=== PATIENT | male | born 1985 | race Caucasian/White ===

== ENCOUNTER 2021-06-19 14:28 | Emergency (ER) | payer OTHER ==
[2021-06-19 14:54] LABS: Absolute Lymphocytes (CBC) 2.6 K/uL (0.7-4.9); Basophils % 0.7 % (0-1.3); Hematocrit 51.1 % (39.6-49.0); Lymphocytes % 31.6 % (15.3-44.8); MPV 7.8 fL (7.6-11.3); RBC Red Blood Cell Count 5.11 M/uL (4.33-5.43)
[2021-06-19 14:57] LABS: Protime INR 1.03
--- NOTE | 2021-06-19 14:57 | RAD REPORT ---
EXAM DESCRIPTION: CT - Ct Stroke Brain Wo Cont - 06/19/2021 2:52 pm CLINICAL HISTORY: SLURRED SPEECH COMPARISON: No comparisons TECHNIQUE: All CT scans are performed using dose optimization technique as appropriate and may inclu de automated exposure control or mA/KV adjustment according to patient size. FINDINGS: No intracranial hemorrhage, hydrocephalus or extra-axial fluid collection.No areas of brai n edema or evidence of midline shift. The paranasal sinuses and mastoids are clear. The calvarium is intact. IMPRESSION: No acute intracranial abnormality.
[2021-06-19 15:09] LABS: BUN Blood Urea Nitrogen 7 mg/dL (7-18); Bicarbonate 25 mmol/L (21-32); Glucose Level 122 mg/dL (74-106); Potassium 3.2 mmol/L (3.5-5.1); Sodium Level 140 mmol/L (136-145)
[2021-06-19] MEDS ORDERED: LABETALOL HCL 100 MG/20 ML ONE (15:16)
[2021-06-19] MEDS ORDERED: ALTEPLASE 0 ML IV ONE (15:19)
[2021-06-19] MEDS ORDERED: NA CHLORIDE 0.9% 0 ML ONE (15:19)
[2021-06-19 15:35] LABS: Urine Blood Negative (Negative); Urine Glucose Negative (Negative); Urine Protein Negative (Negative); Urine Specific Gravity <=1.005 (1.005-1.030)
[2021-06-19 15:54] LABS: Barbiturates NEGATIVE (NEGATIVE); Benzodiazepines NEGATIVE (NEGATIVE); Cocaine NEGATIVE (NEGATIVE); METHAMPHETAM NEGATIVE (NEGATIVE); Methadone NEGATIVE (NEGATIVE); Opiates NEGATIVE (NEGATIVE); Phencyclidine NEGATIVE (NEGATIVE); THC Cannibis NEGATIVE (NEGATIVE)
--- NOTE | 2021-06-19 17:00 | ER ---
Nurse's Notes [facility] Name: Linda Jackson Age: 36 yrs Sex: Male : 1985 Arrival Date: 06/19/2021 Time: 14:29 Bed 8 Private MD: Diagnosis: Altered mental status, unspecified;Weakness;Adjustment disorder with anxiety;Post-traumatic stress disorder (PTSD) Presentation: 06/19 14:30 Chief complaint: Chief complaint: Patient states: "I was just sitting watching TV and aa5 my right side went weak and numb". Right arm weakness and drift noted. Onset of symptoms is 1400 06/19/21. Pt smells of ETOH, pt states "I was just having a beer but I don't drink everyday". 14:30 An acute neurological deficit is present. Pre-hospital glucose is not applicable to aa5 this patient. Onset of symptoms was June 19, 2021. 14:30 Acuity: CHETAN 2 aa5 14:30 Method Of Arrival: Wheelchair aa5 15:38 Coronavirus screen: Vaccine status: Patient reports being unvaccinated. Ebola Screen: tw5 Patient negative for fever greater than or equal to 101.5 degrees Fahrenheit, and additional compatible Ebola Virus Disease symptoms. Initial Sepsis Screen: Does the patient meet any 2 criteria? No. Patient's initial sepsis screen is negative. Does the patient have a suspected source of infection? No. Patient's initial sepsis screen is negative. Risk Assessment: Do you want to hurt yourself or someone else? Patient reports no desire to harm self or others. Triage Assessment: 15:37 The onset of the patients symptoms was June 19, 2021 at 14:30. General: Appears in tw5 no apparent distress. Behavior is calm, cooperative. Stroke Activation: Symptom onset < 3 hours Physician: Stroke Attending; Name: ; Notified At: ; Arrived At: Physician: Chief Stroke Resident; Name: ; Notified At: ; Arrived At: Physician: Stroke Resident; Name: ; Notified At: ; Arrived At: Physician: ED Attending; Name: ; Notified At: ; Arrived At: Physician: ED Resident; Name: ; Notified At: ; Arrived At: Historical: - PMHx: 14:30 Hypertensive disorder; PTSD; Anxiety; aa5 - Immunization history:: Client reports having NOT received the Covid vaccine. - Social history:: Smoking status: Patient reports the use of cigarette tobacco products, smokes one pack cigarettes per day. Patient uses alcohol. Screenin:34 Abuse screen: Denies threats or abuse. Denies injuries from another. Nutritional tw5 screening: No deficits noted. Tuberculosis screening: No symptoms or risk factors identified. Fall Risk None identified. Fall in past 12 months (25 points). Secondary diagnosis (15 points) IV access (20 points). Ambulatory Aid- None/Bed Rest/Nurse Assist (0 pts). Gait- Weak (10 pts.). Mental Status-. Assessment: 14:30 Reassessment: Pt taken to CT via wheelchair. . aa5 14:36 Reassessment: Pt back from CT, accompanied by me. Pt placed on ER stretcher. Dr. jennifer Grove at bedside. . 14:45 VAN Scoring: Arm Drift: Minor drift Visual Disturbance:. The patient has not been NPO tw5 before screening. The patient is alert, and able to follow commands. The patient does not exhibit slurred or garbled speech. The patient is exhibiting difficulty speaking. The patient does not exhibit difficulty understanding words. The patient is able to swallow own secretions with no drooling or need for suction. Patient tolerated one teaspoon of water. No drooling, immediate coughing, gurgling, or clearing of the throat was noted. The patient tolerated 90mL of water. No drooling, immediate coughing, gurgling, or clearing of the throat was noted. The patient passed the bedside swallow screening. Oral medications may be given as ordered. Contact Physician for further diet orders. Provider notified of bedside swallow screening results: Marquez Grove MD. T-PA (Activase) Screening: Indications: Definite evidence of stroke, ischemic, embolic, or hypertensive: Yes. Treatment will start within 4.5 hours onset of symptoms: Yes. No evidence of intracranial hemorrhage or CT of head and no evidence of peripheral hemorrhage or recent CVA: Yes. Consent for thrombolytic therapy: Yes. Pain: Complains of pain in left side of forehead Pain currently is 3 out of 10 on a pain scale. 15:08 Neuro: Level of Consciousness is awake, alert, Oriented to person, place, time, tw5 situation, Appropriate for age Reports numbness weakness 'Light headed'. 15:27 Reassessment: Patient states feeling better. Patient states symptoms have improved. tw5 16:26 Reassessment: No changes from previously documented assessment. Patient and/or family bp updated on plan of care and expected duration. Pain level reassessed. PT ASYMPTOMATIC AT THIS TIME. 17:24 Reassessment: Patient appears in no apparent distress at this time. Patient and/or jd3 family updated on plan of care and expected duration. Pain level reassessed. Patient is alert, oriented x 3, equal unlabored respirations, skin warm/dry/pink. moved pt from ER stretcher to hospital bed. pt denies pain at this time. Vital Signs: 14:50 BP 183 / 121; Pulse 99; Resp 12; Temp 97.7; Pulse Ox 96% on R/A; Weight 117.89 kg; tw5 Height 5 ft. 11 in. (180.34 cm); Pain 3/10; 15:10 BP 140 / 97; Pulse 90; Resp 19; Pulse Ox 98% on R/A; Pain 3/10; tw5 15:27 BP 140 / 97; Pulse 91; Resp 30; Pulse Ox 96% on R/A; Pain 0/10; tw5 15:36 BP 140 / 97; Pulse 92; Resp 18; Pulse Ox 98% on R/A; tw5 16:28 BP 140 / 96; Pulse 95; Resp 22; Pulse Ox 96% ; bp 17:28 BP 122 / 86; Pulse 131; Resp 21 S; Pulse Ox 100% on 2 lpm NC; jd3 14:50 Body Mass Index 36.25 (117.89 kg, 180.34 cm) tw5 NIH Stroke Scale Scores: 14:45 NIHSS Score: 6 tw5 15:27 NIHSS Score: 0 tw5 15:27 NIHSS Score: 7 kdr ED Course: 14:29 Patient arrived in ED. mr 14:30 Arm band placed on. aa5 14:46 Laura Henry is Primary Nurse. tw5 14:48 Marquez Grove MD is Attending Physician. kdr 14:52 CT Stroke Brain w/o Contrast In Process Unspecified. EDMS 14:53 Triage completed. aa5 14:56 Initial lab(s) drawn, by ED staff, sent to lab. Inserted saline lock: 20 gauge in right tw5 antecubital area, using aseptic technique. 14:56 EKG done, by ED staff, reviewed by Marquez Grove MD. tw5 14:56 Inserted saline lock: 20 gauge in left antecubital area, using aseptic technique. tw5 15:34 No apparent distress. Resting quietly. Awaiting lab results. tw5 15:34 Patient has correct armband on for positive identification. Placed in gown. Bed in low tw5 position. Call light in reach. Side rails up X 1. ecology professor on. Pulse ox on. NIBP on. Door closed. Noise minimized. Lights dimmed. Verbal reassurance given. 15:34 No provider procedures requiring assistance completed. Patient maintains SpO2 tw5 saturation greater than 95% on room air. 17:31 IV discontinued, intact, bleeding controlled, No redness/swelling at site. Pressure jd3 dressing applied. Administered Medications: 14:55 Drug: Labetalol 10 mg Route: IVP; Site: right antecubital; tw5 15:36 Follow up: BP 140 / 97; Pulse 92 bpm; Resp 18 bpm; Pulse Ox 98% RA tw5 15:36 Not Given (Physician Discretion; Rapid improvement of symptomss): ACTIvase (alteplase) tw5 IV Thrombolytics at calculated rate Per protocol over 60 mins; 0.9 mg/kg IV (Max: 90 mg); give 10% of the total dose as an IV bolus over 1 minute, then give the remaining 90% as an IV infusion over 60 minutes Point of Care Testing: Blood Glucose: 14:45 Blood Glucose: 144 mg/dL; aa5 Ranges: Outcome: 17:00 Discharge ordered by . kdr 17:30 Discharged to home ambulatory, with family. jd3 17:30 Condition: stable 17:30 Discharge instructions given to patient, Instructed on discharge instructions, follow up and referral plans. Demonstrated understanding of instructions, follow-up care. 17:32 Patient left the ED. jd3 NIH Stroke Scale - NIH Stroke Score Date: 06/19/2021 Time: 14:45 Total Score = 6 1a. Level of Consciousness (LOC) - 0(Alert) 1b. Level of Consciousness (LOC) (Month \\T\\ Age) - 0(Both) 1c. LOC Commands (Open \\T\\ Closes Eyes/Compensation Manager) - 0(Both) 2. Best Gaze (Lateral Gaze Paresis) - 0(Normal) 3. Visual Field Loss - 0(No visual loss) 4. Facial Palsy - 0(Normal) 5a. Left Arm: Motor (10-second hold) - 0(No drift) 5b. Right Arm: Motor (10-second hold) - 1(Drift) 6a. Left Leg: Motor (5-second hold - always test supine) - 0(No drift) 6b. Right Leg: Motor (5-second hold - always test supine) - 0(No drift) 7. Limb Ataxia (finger/nose \\T\\ heel/jean - test with eyes open) - 2(Present in two limbs) 8. Sensory Loss (pinprick arms/legs/face) - 1(Mild to moderate loss) 9. Best Language: Aphasia (description/naming/reading) - 1(Mild to moderate aphasia) 10. Dysarthria (speech clarity - read or repeat words) - 1(Mild to Moderate) 11. Extinction and Inattention (visual/tactile/auditory/spatial/personal) - 0(No abnormality) Initials: tw5 NIH Stroke Scale - NIH Stroke Score Date: 06/19/2021 Time: 15: Total Score = 0 1a. Level of Consciousness (LOC) - 0(Alert) 1b. Level of Consciousness (LOC) (Month \\T\\ Age) - 0(Both) 1c. LOC Commands (Open \\T\\ Closes Eyes/Compensation Manager) - 0(Both) 2. Best Gaze (Lateral Gaze Paresis) - 0(Normal) 3. Visual Field Loss - 0(No visual loss) 4. Facial Palsy - 0(Normal) 5a. Left Arm: Motor (10-second hold) - 0(No drift) 5b. Right Arm: Motor (10-second hold) - 0(No drift) 6a. Left Leg: Motor (5-second hold - always test supine) - 0(No drift) 6b. Right Leg: Motor (5-second hold - always test supine) - 0(No drift) 7. Limb Ataxia (finger/nose \\T\\ heel/jean - test with eyes open) - 0(Absent) 8. Sensory Loss (pinprick arms/legs/face) - 0(Normal) 9. Best Language: Aphasia (description/naming/reading) - 0(No aphasia) 10. Dysarthria (speech clarity - read or repeat words) - 0(Normal) 11. Extinction and Inattention (visual/tactile/auditory/spatial/personal) - 0(No abnormality) Initials: tw5 NIH Stroke Scale - NIH Stroke Score Date: 06/19/2021 Time: 15:27 Total Score = 7 1a. Level of Consciousness (LOC) - 0(Alert) 1b. Level of Consciousness (LOC) (Month \\T\\ Age) - 1(One) 1c. LOC Commands (Open \\T\\ Closes Eyes/Compensation Manager) - 1(One) 2. Best Gaze (Lateral Gaze Paresis) - 0(Normal) 3. Visual Field Loss - 0(No visual loss) 4. Facial Palsy - 0(Normal) 5a. Left Arm: Motor (10-second hold) - 0(No drift) 5b. Right Arm: Motor (10-second hold) - 1(Drift) 6a. Left Leg: Motor (5-second hold - always test supine) - 0(No drift) 6b. Right Leg: Motor (5-second hold - always test supine) - 1(Drift) 7. Limb Ataxia (finger/nose \\T\\ heel/jean - test with eyes open) - 1(Present in one limb) 8. Sensory Loss (pinprick arms/legs/face) - 1(Mild to moderate loss) 9. Best Language: Aphasia (description/naming/reading) - 0(No aphasia) 10. Dysarthria (speech clarity - read or repeat words) - 1(Mild to Moderate) 11. Extinction and Inattention (visual/tactile/auditory/spatial/personal) - 0(No abnormality) Initials: kdr Signatures: Dispatcher [employer] EDMS Marquez Grove MD MD [facility] Haylee AnuelXiomara RN RN aa5 Aristeo Weinstein RN RN jd3 Peltier, Brian, RN RN bp Wood, Tiffany tw5 Corrections: (The following items were deleted from the chart) 14:53 14:30 Chief complaint: aa5 aa5 14:54 14:30 Chief complaint: Patient states: "I was just sitting watching TV and my aa5 right side went weak and numb". Right arm weakness and drift noted. Onset of symptoms is 1400 06/19/21. Chief complaint: Patient states: "I was just sitting watching TV and my right side went weak and numb". Right arm weakness and drift noted. Onset of symptoms is 1400 06/19/21. aa5 14:59 14:50 BP 183 / 121; Pulse 99bpm; Resp 12bpm; Pulse Ox 96% RA; Temp 97.7F; tw5 Height 5 ft. 11 in.; Pain 0/10; tw5 15:08 14:50 BP 183 / 121; Pulse 99bpm; Resp 12bpm; Pulse Ox 96% RA; Temp 97.7F; tw5 Height 5 ft. 11 in.; Pain 3/10; tw5
--- NOTE | 2021-06-19 17:00 | EDPHYS ---
Physician Documentation [facility] Name: Linda Jackson Age: 36 yrs Sex: Male : 1985 Arrival Date: 06/19/2021 Time: 14:29 Bed 8 Private MD: ED Physician Marquez Grove HPI: 06/19 15:27 This 36 yrs old Male presents to ER via Wheelchair with complaints of S/S of kdr Possible Stroke. 15:27 The patient's problem is reported as paresthesias, in right lower extremity, weakness, kdr in the right upper extremity, in the right lower extremity. Duration: This was a single incident. Context: symptoms became apparent About 30 minutes prior to arrival. The symptoms are alleviated by nothing. The symptoms are aggravated by nothing. Associated signs and symptoms: The patient has no apparent associated signs or symptoms. Severity of symptoms: At their worst the symptoms were mild moderate just prior to arrival, in the emergency department the symptoms are unchanged. The patient has not experienced similar symptoms in the past. The patient has not recently seen a physician. The patient states that he has been under a lot of stress from his work and new job. 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 He indicated that he has been under a lot of stress secondary to the loss of some of his colleagues.. Historical: - PMHx: 14:30 Hypertensive disorder; PTSD; Anxiety; aa5 - Immunization history:: Client reports having NOT received the Covid vaccine. - Social history:: Smoking status: Patient reports the use of cigarette tobacco products, smokes one pack cigarettes per day. Patient uses alcohol. ROS: 15:27 Constitutional: Negative for fever, chills, and weight loss, Eyes: Negative for injury, kdr pain, redness, and discharge, ENT: Negative for injury, pain, and discharge, Neck: Negative for injury, pain, and swelling, Cardiovascular: Negative for chest pain, palpitations, and edema, Respiratory: Negative for shortness of breath, cough, wheezing, and pleuritic chest pain, Abdomen/GI: Negative for abdominal pain, nausea, vomiting, diarrhea, and constipation, Back: Negative for injury and pain, : Negative for injury, bleeding, discharge, and swelling, MS/Extremity: Negative for injury and deformity, Skin: Negative for injury, rash, and discoloration, Psych: Negative for depression, anxiety, suicide ideation, homicidal ideation, and hallucinations, Allergy/Immunology: Negative for hives, rash, and allergies, Endocrine: Negative for neck swelling, polydipsia, polyuria, polyphagia, and marked weight changes, Hematologic/Lymphatic: Negative for swollen nodes, abnormal bleeding, and unusual bruising. 15:27 Neuro: Positive for dizziness, weakness, Paresthesias of the right lower extremity. Exam: 15:27 Constitutional: This is a well developed, well nourished patient who is awake, alert, kdr and in no acute distress. Head/Face: Normocephalic, atraumatic. Eyes: Pupils equal round and reactive to light, extra-ocular motions intact. Lids and lashes normal. Conjunctiva and sclera are non-icteric and not injected. Cornea within normal limits. Periorbital areas with no swelling, redness, or edema. Neck: Trachea midline, no thyromegaly or masses palpated, and no cervical lymphadenopathy. Supple, full range of motion without nuchal rigidity, or vertebral point tenderness. No Meningismus. Chest/axilla: Normal chest wall appearance and motion. Nontender with no deformity. No lesions are appreciated. Cardiovascular: Regular rate and rhythm with a normal S1 and S2. No gallops, murmurs, or rubs. Normal PMI, no JVD. No pulse deficits. Respiratory: Lungs have equal breath sounds bilaterally, clear to auscultation and percussion. No rales, rhonchi or wheezes noted. No increased work of breathing, no retractions or nasal flaring. Abdomen/GI: Soft, non-tender, with normal bowel sounds. No distension or tympany. No guarding or rebound. No evidence of tenderness throughout. Back: No spinal tenderness. No costovertebral tenderness. Full range of motion. Skin: Warm, dry with normal turgor. Normal color with no rashes, no lesions, and no evidence of cellulitis. MS/ Extremity: Pulses equal, no cyanosis. Neurovascular intact. Full, normal range of motion. Psych: Awake, alert, with orientation to person, place and time. Behavior, mood, and affect are within normal limits. 15:27 Neuro: Orientation: appropriate for stated age, Cerebellar function: Slow. 17:03 Radiologist reports: Received a call from radiology however it was noted that the kdr report and available in in the EMR Vital Signs: 14:50 BP 183 / 121; Pulse 99; Resp 12; Temp 97.7; Pulse Ox 96% on R/A; Weight 117.89 kg; tw5 Height 5 ft. 11 in. (180.34 cm); Pain 3/10; 15:10 BP 140 / 97; Pulse 90; Resp 19; Pulse Ox 98% on R/A; Pain 3/10; tw5 15:27 BP 140 / 97; Pulse 91; Resp 30; Pulse Ox 96% on R/A; Pain 0/10; tw5 15:36 BP 140 / 97; Pulse 92; Resp 18; Pulse Ox 98% on R/A; tw5 16:28 BP 140 / 96; Pulse 95; Resp 22; Pulse Ox 96% ; bp 17:28 BP 122 / 86; Pulse 131; Resp 21 S; Pulse Ox 100% on 2 lpm NC; jd3 14:50 Body Mass Index 36.25 (117.89 kg, 180.34 cm) tw5 NIH Stroke Scale Scores: 14:45 NIHSS Score: 6 tw5 15:27 NIHSS Score: 0 tw5 15:27 NIHSS Score: 7 kdr MDM: 15:25 ED course: PA not given because the patient's symptoms were migratory and transient. kdr Additionally his sensorium seem to be improving and clearing and to the extent he had any defining focal deficits, they were improving.. ED course: The patient admitted to consuming most of a 24 ounce for local beverage prior to arrival. He had not had anything to eat prior to drinking the alcoholic beverage.. ED course: Due to the above considerations, the patient was not given TPA. 17:00 Patient medically screened. kdr 17:01 Data reviewed: vital signs, nurses notes. ED course: Normal the patient was in the kdr department, the more oriented he became more belligerent. He began using foul language with the nursing staff and insisted on being discharged. He had no apparent neurologic deficits. He was otherwise happy with the care provided and insisted on the plan for discharge to follow up. 06/19 14:48 Order name: Basic Metabolic Panel; Complete Time: 15:25 tw5 06/19 14:48 Order name: CBC with Diff; Complete Time: 15:05 tw5 06/19 14:48 Order name: Protime (+inr); Complete Time: 15:05 06/19 14:48 Order name: Ptt, Activated; Complete Time: 15:05 tw06/19 14:48 Order name: UDS 06/19 14:52 Order name: Glucose, Ancillary Testing; Complete Time: 15:05 EDMS 06/19 14:48 Order name: CT Stroke Brain w/o Contrast; Complete Time: 15:05 06/19 14:48 Order name: EKG; Complete Time: 14:49 tw06/19 14:48 Order name: Accucheck; Complete Time: 14:49 06/19 14:48 Order name: Cardiac monitoring; Complete Time: 14:49 06/19 15:35 Order name: Urine Dipstick-Ancillary EDMS 06/19 16:54 Order name: Alcohol Level [facility] 06/19 14:48 Order name: EKG - Nurse/Tech; Complete Time: 15:10 06/19 14:48 Order name: IV Saline Lock; Complete Time: 14:49 06/19 14:48 Order name: Labs collected and sent; Complete Time: 14:49 06/19 14:48 Order name: NPO; Complete Time: 14:49 06/19 14:48 Order name: O2 Per Protocol; Complete Time: 14:49 06/19 14:48 Order name: O2 Sat Monitoring; Complete Time: 14:49 06/19 14:48 Order name: Stroke Swallow Screen; Complete Time: 14:49 tw5 Administered Medications: 14:55 Drug: Labetalol 10 mg Route: IVP; Site: right antecubital; tw5 15:36 Follow up: BP 140 / 97; Pulse 92 bpm; Resp 18 bpm; Pulse Ox 98% RA tw5 15:36 Not Given (Physician Discretion; Rapid improvement of symptomss): ACTIvase (alteplase) tw5 IV Thrombolytics at calculated rate Per protocol over 60 mins; 0.9 mg/kg IV (Max: 90 mg); give 10% of the total dose as an IV bolus over 1 minute, then give the remaining 90% as an IV infusion over 60 minutes Point of Care Testing: Blood Glucose: 14:45 Blood Glucose: 144 mg/dL; aa5 Ranges: Critical Glucose Levels:Adult <50 mg/dl or >400 mg/dl <40 mg/dl or >180 mg/dl Disposition Summary: 06/19/21 17:00 Discharge Ordered Location: Home kdr Condition: Stable kdr Diagnosis - Altered mental status, unspecified kdr - Weakness kdr - Adjustment disorder with anxiety kdr - Post-traumatic stress disorder (PTSD) kdr Followup: kdr - With: Private Physician - When: 2 - 3 days - Reason: If symptoms return, Further diagnostic work-up, Recheck today's complaints, Continuance of care, Re-evaluation by your physician Discharge Instructions: - Discharge Summary Sheet kdr - Confusion kdr - Hypertension, Adult, [id number] kdr - Weakness, [id number] kdr - Managing Anxiety, Adult kdr Forms: - Medication Reconciliation Form kdr - Thank You Letter kdr NIH Stroke Scale - NIH Stroke Score Date: 06/19/2021 Time: 14:45 Total Score = 6 1a. Level of Consciousness (LOC) - 0(Alert) 1b. Level of Consciousness (LOC) (Month \T\ Age) - 0(Both) 1c. LOC Commands (Open \T\ Closes Eyes/Table Games Shift Manager) - 0(Both) 2. Best Gaze (Lateral Gaze Paresis) - 0(Normal) 3. Visual Field Loss - 0(No visual loss) 4. Facial Palsy - 0(Normal) 5a. Left Arm: Motor (10-second hold) - 0(No drift) 5b. Right Arm: Motor (10-second hold) - 1(Drift) 6a. Left Leg: Motor (5-second hold - always test supine) - 0(No drift) 6b. Right Leg: Motor (5-second hold - always test supine) - 0(No drift) 7. Limb Ataxia (finger/nose \T\ heel/jean - test with eyes open) - 2(Present in two limbs) 8. Sensory Loss (pinprick arms/legs/face) - 1(Mild to moderate loss) 9. Best Language: Aphasia (description/naming/reading) - 1(Mild to moderate aphasia) 10. Dysarthria (speech clarity - read or repeat words) - 1(Mild to Moderate) 11. Extinction and Inattention (visual/tactile/auditory/spatial/personal) - 0(No abnormality) Initials: tw5 NIH Stroke Scale - NIH Stroke Score Date: 06/19/2021 Time: 15:27 Total Score = 0 1a. Level of Consciousness (LOC) - 0(Alert) 1b. Level of Consciousness (LOC) (Month \T\ Age) - 0(Both) 1c. LOC Commands (Open \T\ Closes Eyes/Table Games Shift Manager) - 0(Both) 2. Best Gaze (Lateral Gaze Paresis) - 0(Normal) 3. Visual Field Loss - 0(No visual loss) 4. Facial Palsy - 0(Normal) 5a. Left Arm: Motor (10-second hold) - 0(No drift) 5b. Right Arm: Motor (10-second hold) - 0(No drift) 6a. Left Leg: Motor (5-second hold - always test supine) - 0(No drift) 6b. Right Leg: Motor (5-second hold - always test supine) - 0(No drift) 7. Limb Ataxia (finger/nose \T\ heel/jean - test with eyes open) - 0(Absent) 8. Sensory Loss (pinprick arms/legs/face) - 0(Normal) 9. Best Language: Aphasia (description/naming/reading) - 0(No aphasia) 10. Dysarthria (speech clarity - read or repeat words) - 0(Normal) 11. Extinction and Inattention (visual/tactile/auditory/spatial/personal) - 0(No abnormality) Initials: tw5 NIH Stroke Scale - NIH Stroke Score Date: 06/19/2021 Time: : Total Score = 7 1a. Level of Consciousness (LOC) - 0(Alert) 1b. Level of Consciousness (LOC) (Month \T\ Age) - 1(One) 1c. LOC Commands (Open \T\ Closes Eyes/Table Games Shift Manager) - 1(One) 2. Best Gaze (Lateral Gaze Paresis) - 0(Normal) 3. Visual Field Loss - 0(No visual loss) 4. Facial Palsy - 0(Normal) 5a. Left Arm: Motor (10-second hold) - 0(No drift) 5b. Right Arm: Motor (10-second hold) - 1(Drift) 6a. Left Leg: Motor (5-second hold - always test supine) - 0(No drift) 6b. Right Leg: Motor (5-second hold - always test supine) - 1(Drift) 7. Limb Ataxia (finger/nose \T\ heel/jean - test with eyes open) - 1(Present in one limb) 8. Sensory Loss (pinprick arms/legs/face) - 1(Mild to moderate loss) 9. Best Language: Aphasia (description/naming/reading) - 0(No aphasia) 10. Dysarthria (speech clarity - read or repeat words) - 1(Mild to Moderate) 11. Extinction and Inattention (visual/tactile/auditory/spatial/personal) - 0(No abnormality) Initials: kdr Signatures: Dispatcher [employer] EDMarquez Valiente MD MD [facility] Xiomara Agee RN RN aa5 Cummings, Laura 5
[2021-06-19 17:39] VITALS: TEMP 97.7
[2021-06-19 17:46] VITALS: BP 122/86; O2SAT 100
--- NOTE | 2021-06-22 09:03 | EKG ---
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
== END 2021-06-19 17:32 | disposition home or self-care (01) ==
LOC: ER 14:28
DX: F43.22 Adjustment disorder with anxiety (principal); F43.10 Post-traumatic stress disorder, unspecified; R53.1 Weakness; I10 Essential (primary) hypertension; F17.210 Nicotine dependence, cigarettes, uncomplicated
CPT/HCPCS: 36415; 70450; 80048; 80307; 80320; 81003; 82947; 85025; 85610; 85730; 93005; 96374; 99285; J2997

== ENCOUNTER 2021-08-27 17:18 | Emergency (ER) | payer OTHER ==
--- NOTE | 2021-08-27 20:07 | ER ---
Nurse's Notes [facility] Name: Linda Jackson Age: 36 yrs Sex: Male : 1985 Arrival Date: 08/27/2021 Time: 17:24 Bed Waiting Private MD: Diagnosis: ED Course: 08/27 17:24 Patient arrived in ED. mr 19:30 Patient's name was called from ER lobby. No response. lp1 20:06 Patient's name was called from ER lobby. Unable to locate patient. Will disposition as lp1 left without being seen by a provider. Administered Medications: No medications were administered Outcome: 20:06 Patient left the ED. lp1 Signatures: Haylee Long Laura RN RN lp1
== END 2021-08-27 20:06 | disposition left against medical advice (07) ==
LOC: ER 17:18
DX: Z02.9 Encounter for administrative examinations, unspecified (principal)